=== PATIENT | male | born 1945 | race Caucasian/White ===

== ENCOUNTER 2017-05-15 17:01 | Emergency (ER) | payer MEDICARE, BC ==
[2017-05-15 17:10] VITALS: BP 111/68
--- NOTE | 2017-05-17 09:06 | ER ---
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 This is associated with frequency, urgency, decreased urine output, dribbling, incomplete emptying, and sometimes foul urine smell. The patient has not had previous prostate surgery. PAST MEDICAL HISTORY: Documented hyperbilirubinemia, one episode of chest pain with first degree AV block, Mobitz type I, slight liver enzyme abnormality, dyslipidemia, and GERD. The patient has 1 to 2 drinks of wine a day. He likes his wine. He has had previous surgery for undescended testicle surgery excision, cholecystectomy, and EGD. ALLERGIES: None. MEDICATIONS: 1. Fish oil. 2. Aspirin. 3. Vitamin E 4. Crestor. 5. Prilosec. 6. Multivitamins. 7. Amlodipine. REVIEW OF SYSTEMS: The patient wears glasses. Hearing is good. Denies difficulty breathing, shortness of breath, or swallowing. No nausea, vomiting, diarrhea, constipation, blood in stool, change in bowel, or diarrhea. Denies chest pain; irregular heartbeat; shortness of breath; lightheadedness; near syncope; syncope; neck, jaw, arm, back, abdominal pain. No history of GERD. No history of ulcers. No history of pancreatitis. MUSCULOSKELETAL: Denies back pain, arm pain, jaw pain, and joint pain. He has osteoarthritis with abnormal DIP joints in the fingers. Denies tools programmer stiffness. NEUROLOGIC: Negative. Denies headaches. PHYSICAL EXAMINATION: VITAL SIGNS: Blood pressure 111/68, heart rate 77 and regular, respirations 18, oxygen saturation 97%, and temperature 36.9 degree centigrade. GENERAL: Well-tanned man, in no acute distress. HEENT: PERRLA intact. Pharynx without abnormality. No thyromegaly or masses. NECK: No cervical lymphadenopathy or bruits. LUNGS: Clear to auscultation without rales, rhonchi, or wheezes. HEART: S1 and S2. There is a slight irregular heart 1/6 murmur noted crescendo-decresendo right sternal border, left upper sternal border and slightly to the left midclavicular line. ABDOMEN: Soft. No guarding. No rebound. No hepatosplenomegaly. Bowel sounds normal. Slightly increased girth. No CVA percussion tenderness. GENITALIA: Negative. Prostate exam, he has 3+ large firm prostate without nodules. It is smooth in character and the prostatic pubic angle is decreased. No pain with prostate exam. EXTREMITIES: Without abnormality. LABORATORY STUDIES: Urinalysis: pH 5, specific gravity 1.020, protein 500, (greater than 1,000 is considered high), Glucose normal, ketones 150, bilirubin large, occult blood large, urobilinogen 4, nitrite positive, large leukocyte esterase, rbc's 10 to 20, wbc's greater than 100, occasional squamous epithelials, many bacteria. PSA pending. DIAGNOSES: 1. Prostatism with prostatic enlargement, outlet obstruction symptoms, decreased flow. 2. Urinary tract infection probably secondary to retained urine. He had a urine bladder scan and (see nurses note) 137 mL. 3. The patient drinks wine daily. In the past, he has had mild elevation of liver enzymes. Today, they are not elevated, but he has elevated bilirubin 2.6. No suggestion of jaundice, but hyperbilirubinemia needs further followup. 4. Hyponatremia, mild, 130 sodium. 5. Dyslipidemia. 6. Hypertension, treated. PLAN: 1. The patient is to use Proscar 5 mg (finasteride) daily. He has been instructed to take 1 tablet daily. 2. 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 3. No contraindication, it does not interact with his medicines. 4. The patient is to follow up with his doctor in a week. He is to be started on finasteride, and he is advised about potential side effects, potentially his lightheadedness, orthostatic hypotension, and/or rash. The patient was seen at 1730. The patient was seen prior to my visit by Dr. Pfeiffer. Dr. Pfeiffer had seen him earlier in the week because of the fever and UTI and started on Septra b.i.d. The patient is to continue the medicines. He has a prescription for [address] Pfeiffer. /[id number] ELIS/JOHN
== END 2017-05-15 18:15 | disposition home or self-care (01) ==
LOC: FB.ED 17:01
DX: N40.1 Benign prostatic hyperplasia with lower urinary tract symptoms (principal); R35.0 Frequency of micturition; E78.5 Hyperlipidemia, unspecified; E87.1 Hypo-osmolality and hyponatremia; R79.89 Other specified abnormal findings of blood chemistry; K21.9 Gastro-esophageal reflux disease without esophagitis; I10 Essential (primary) hypertension; Z90.49 Acquired absence of other specified parts of digestive tract; R30.0 Dysuria; N39.0 Urinary tract infection, site not specified; N30.90 Cystitis, unspecified without hematuria
CPT/HCPCS: 36415; 80053; 81001; 84153; 84154; 87086; 87088; 87186; 99281; 99283

== ENCOUNTER 2017-09-26 20:46 | Emergency (ER) | payer MEDICARE, BC ==
[2017-09-26] MEDS ORDERED: Sodium Chloride 0.9% 1,000 ML IV ONE (21:00)
--- NOTE | 2017-09-26 21:02 | EDM.PDOC ---
ED HPI GENERAL MEDICAL PROBLEM - General Stated Complaint: PASSED OUT Time Seen by Provider: 09/26/17 20:46 Source of Information: Reports: Patient, Family History Limitations: Reports: No Limitations - History of Present Illness INITIAL COMMENTS - FREE TEXT/NARRATIVE: 72 y.o.w.m with a h/o low BP, Mobitz Typ 1 arrythmia, came to the ed after he passed out for 5 seconds, witnessed. Pt had no trauma. He drinks coffee and wine during the day and in the evening 1-2 glasses before bedtime. Pt passed out in the past. No N/V/D or any other acute medical issues at this time. BP 116/51 pulse 51 RR 11 Pulse ox 97% on RA Onset: Today Onset Date: 09/26/17 Onset Time: 21:00 Duration: Hour(s):, Getting Worse Location: Reports: Generalized Severity: Mild Improves with: Reports: Rest Worsens with: Reports: Movement Context: Reports: Other (pt passed out) Associated Symptoms: Reports: Weakness - Related Data Allergies Allergy/AdvReac Type Severity Reaction Status Date / Time No Known Allergies Allergy Verified 09/26/17 21:22 Home Meds: Home Meds Aspirin [Pro Chewable] 81 mg PO DAILY 04/25/14 [History] Fish Oil/[place]-3 Fatty Acids [Fish Oil] 1 each PO DAILY 04/25/14 [History] Lysine 1,000 mg PO DAILY 04/25/14 [History] Multivitamin [Multivitamins] 1 cap PO DAILY 04/25/14 [History] Omeprazole [Prilosec] 20 mg PO DAILY 04/25/14 [History] Rosuvastatin [Crestor] 10 mg PO DAILY 04/25/14 [History] Vitamin E 400 unit PO DAILY 04/25/14 [History] amLODIPine [Norvasc] 5 mg PO DAILY 04/25/14 [History] Finasteride [Proscar] 5 mg PO DAILY #30 tablet 05/15/17 [Rx] Finasteride [Proscar] 5 mg PO DAILY #30 tablet 05/15/17 [Rx] Past Medical History Cardiovascular History: Reports: Hypertension, [place] Genitourinary History: Reports: BPH Social & Family History - Tobacco Use Smoking Status *Q: Never Smoker Second Hand Smoke Exposure: No - Caffeine Use Caffeine Use: Reports: Coffee - Alcohol Use Days Per Week of Alcohol Use: 7 Number of Drinks Per Day: 2 Total Drinks Per Week: 14 - Recreational Drug Use Recreational Drug Use: No - Living Situation & Occupation Living situation: Reports: Single ED ROS GENERAL - Review of Systems Review Of Systems: See Below Constitutional: Reports: Weakness HEENT: Reports: No Symptoms Respiratory: Reports: No Symptoms Cardiovascular: Reports: No Symptoms Endocrine: Reports: No Symptoms GI/Abdominal: Reports: No Symptoms : Reports: No Symptoms Musculoskeletal: Reports: No Symptoms Skin: Reports: No Symptoms Neurological: Reports: Syncope (for 5 seconds) Psychiatric: Reports: No Symptoms Hematologic/Lymphatic: Reports: No Symptoms Immunologic: Reports: No Symptoms ED EXAM, GENERAL - Physical Exam Exam: See Below Exam Limited By: No Limitations General Appearance: Alert, WD/WN, Mild Distress Eye Exam: Bilateral Eye: Normal Inspection Ears: Normal External Exam Ear Exam: Bilateral Ear: Auricle Normal Nose: Normal Inspection, Normal Mucosa Throat/Mouth: Other (dry mucosal membrane) Head: Atraumatic, Normocephalic Neck: Normal Inspection, Supple Respiratory/Chest: No Respiratory Distress, Lungs Clear, Normal Breath Sounds, No Accessory Muscle Use, Chest Non-Tender Cardiovascular: No Edema, No Gallop, Other (Pt has H/O Mobitz typ I arrythmia) Peripheral Pulses: 1+: Radial (R) GI/Abdominal: Normal Bowel Sounds, Soft, Non-Tender, No Organomegaly (Male) Exam: Deferred Rectal (Males) Exam: Deferred Back Exam: Normal Inspection Extremities: Normal Inspection, Normal Range of Motion, Non-Tender, No Pedal Edema Neurological: Alert, Oriented, CN II-XII Intact, Normal Cognition, Normal Gait Psychiatric: Normal Affect, Normal Mood Skin Exam: Warm, Dry, Intact, Normal Color, No Rash Lymphatic: No Adenopathy Course - Vital Signs Text/Narrative:: 72 y.o.w.m with a h/o low BP, Mobitz Typ 1 arrythmia, came to the ed after he passed out for 5 seconds, witnessed. Pt had no trauma. He drinks coffee and wine during the day and in the evening 1-2 glasses before bedtime. Pt passed out in the past. No N/V/D or any other acute medical issues at this time. BP 116/51 pulse 51 RR 11 Pulse ox 97% on RA Labs: K was 3.1 Glc 149 Ca 8.5. CBC, INT and remainder of the BMP were nl Imaging: Not indicated Impression: Hypokalemia, Dehydration, S/P syncopal episode, H/O Typ I Mobitz arrhythmia bradycardia Tx: Potassium, NS Reexam: Pt was doing better and was ambulating fine, no N/V, no dizziness, but feels tired. Plan: D/C with instructions Addendum: I wrote my note after the pt left the ED and realized the last BP is as low as 94/54, pulse 51 and [place] ox 93% on RA on D/C (last vitals) I called the pt at home at 12.45 am on 09/27/2017 at [phone], Father Abel stated he was doing better, his sister is checking on him and he will check his vitals in the morning. He does not see a need to come back to the ed now. Last Recorded V/S: Last Vital Signs Temp 36.3 C 09/26/17 21:26 Pulse 54 L 09/26/17 22:26 Resp 20 09/26/17 22:26 BP 94/49 L 09/26/17 22:26 Pulse Ox 93 L 09/26/17 22:26 Orthostatic Blood Pressure [ 116/60 Sitting] Orthostatic Blood Pressure [ 108/68 Standing] - Orders/Labs/Meds Orders: Active Orders 24 hr Category Date Time Status Saline Lock Insert [OM.PC] Routine Oth 09/26/17 21:08 Ordered Labs: Laboratory Tests 09/26/17 09/26/17 09/26/17 Range/Units 21:05 21:05 21:05 WBC 4.7 (4.5-12.0) X10-3/uL RBC 4.78 (4.30-5.75) x10(6)uL Hgb 14.9 (11.5-15.5) g/dL Hct 43.8 (30.0-51.3) % MCV 91.8 (80-96) fL MCH 31.2 (27.7-33.6) pg MCHC 34.0 (32.2-35.4) g/dL RDW 11.7 (11.5-15.5) % Plt Count 244 (125-369) X10(3)uL MPV 8.1 (7.4-10.4) fL Neut % (Auto) 53.9 (46-82) % Lymph % (Auto) 31.5 (13-37) % [place] % (Auto) 9.3 (4-12) % Eos % (Auto) 4 (1.0-5.0) % Baso % (Auto) 1 (0-2) % Neut # (Auto) 2.5 (1.6-8.3) # Lymph # (Auto) 1.5 (0.6-5.0) # [place] # (Auto) 0.4 (0.0-1.3) # Eos # (Auto) 0.2 (0.0-0.8) # Baso # (Auto) 0.1 (0.0-0.2) # PT 9.9 (8.7-11.1) INR 0.98 (0.89-1.13) Sodium 141 (135-145) mmol/L Potassium 3.1 L (3.5-5.3) mmol/L Chloride 106 (100-110) mmol/L Carbon Dioxide 25 (21-32) mmol/L BUN 18 (7-18) mg/dL Creatinine 0.9 (0.70-1.30) mg/dL Est Cr Clr Drug Dosing TNP Estimated GFR (MDRD) > 60 (>60) BUN/Creatinine Ratio 20.0 (9-20) Glucose 149 H (80-116) mg/dL Calcium 8.5 L (8.6-10.2) mg/dL Ethyl Alcohol (<0.03) % 09/26/17 Range/Units 21:05 WBC (4.5-12.0) X10-3/uL RBC (4.30-5.75) x10(6)uL Hgb (11.5-15.5) g/dL Hct (30.0-51.3) % MCV (80-96) fL MCH (27.7-33.6) pg MCHC (32.2-35.4) g/dL RDW (11.5-15.5) % Plt Count (125-369) X10(3)uL MPV (7.4-10.4) fL Neut % (Auto) (46-82) % Lymph % (Auto) (13-37) % [place] % (Auto) (4-12) % Eos % (Auto) (1.0-5.0) % Baso % (Auto) (0-2) % Neut # (Auto) (1.6-8.3) # Lymph # (Auto) (0.6-5.0) # [place] # (Auto) (0.0-1.3) # Eos # (Auto) (0.0-0.8) # Baso # (Auto) (0.0-0.2) # PT (8.7-11.1) INR (0.89-1.13) Sodium (135-145) mmol/L Potassium (3.5-5.3) mmol/L Chloride (100-110) mmol/L Carbon Dioxide (21-32) mmol/L BUN (7-18) mg/dL Creatinine (0.70-1.30) mg/dL Est Cr Clr Drug Dosing Estimated GFR (MDRD) (>60) BUN/Creatinine Ratio (9-20) Glucose (80-116) mg/dL Calcium (8.6-10.2) mg/dL Ethyl Alcohol < 0.03 (<0.03) % Meds: Medications Discontinued Medications Generic Name Dose Route Start Last Admin Trade Name Freq PRN Reason Stop Dose Admin Sodium Chloride 1,000 mls @ 999 mls/hr 09/26/17 21:00 09/26/17 21:20 Normal Saline IV 09/26/17 22:00 999 mls/hr .BOLUS ONE Administration Potassium Chloride 40 meq 09/26/17 21:48 09/26/17 21:54 Klor-Con M20 PO 09/26/17 21:49 40 meq ONETIME ONE Administration Potassium Chloride 40 meq 09/26/17 22:05 09/26/17 22:11 Klor-Con M20 PO 09/26/17 22:06 Not Given ONETIME ONE Sodium Chloride 10 ml 09/26/17 21:08 09/26/17 21:10 Saline Flush FLUSH 10 ml ASDIRECTED PRN Administration Keep Vein Open Departure - Departure Time of Disposition: 22:03 Disposition: Home, Self-Care 01 Condition: Good Clinical Impression: Vasovagal syncope, Hypokalemia, Dehydration - Discharge Information Referrals: Charly Kwong MD [Primary Care Provider] - Forms: ED Department Discharge Additional Instructions: Please increase water intake, please take the potassium pills not before 2 am tomorrow. Please f/u with your PMD in 3 days for potassium level check. Please come back if your symptoms get worse acutely. - My Orders Last 24 Hours: My Active Orders 09/26/17 21:08 Saline Lock Insert [OM.PC] Routine - Assessment/Plan Last 24 Hours: My Active Orders 09/26/17 21:08 Saline Lock Insert [OM.PC] Routine
[2017-09-26] MEDS ORDERED: Sodium Chloride 0.9% 10 ML Syringe FLUSH PRN (21:08)
[2017-09-26] MEDS ORDERED: Potassium Chloride 20 MEQ Tab.ER PO ONE ×2 (21:48→22:05)
[2017-09-26 22:27] VITALS: BP 94/49
== END 2017-09-26 22:28 | disposition home or self-care (01) ==
LOC: FB.ED 20:46
DX: R55 Syncope and collapse (principal); E87.6 Hypokalemia; E86.0 Dehydration; I10 Essential (primary) hypertension; Z79.82 Long term (current) use of aspirin; Z79.899 Other long term (current) drug therapy
CPT/HCPCS: 36415; 80048; 85025; 85610; 96360; 99284; A9270; G0480; J7040; J7050; 99283

== ENCOUNTER 2018-12-17 19:20 | Emergency (ER) | payer OTHER, MEDICARE, BC ==
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
[2018-12-17 20:07] LABS: HEMOGLOBIN A1C 5.6 % (4.5-6.2)
[2018-12-17 20:09] VITALS: BP 162/78
== END 2018-12-17 22:00 | disposition other institution (70) ==
LOC: FB.ED 19:20
DX: I44.1 Atrioventricular block, second degree (principal); I10 Essential (primary) hypertension; I25.2 Old myocardial infarction; Z79.82 Long term (current) use of aspirin; Z79.899 Other long term (current) drug therapy
CPT/HCPCS: 36415; 70450; 80053; 80061; 83036; 84484; 85025; 93005; 99285-25

== ENCOUNTER 2019-01-19 08:19 | Emergency (ER) | payer MEDICARE, BC | END 2019-01-19 08:28 | disposition left against medical advice (07) | LOC: FB.ED 08:19 | DX: Z53.21 Procedure and treatment not carried out due to patient leaving prior to being seen by health care provider (principal) ==